=== PATIENT | female | born 1990 | race Caucasian/White ===

== ENCOUNTER 2017-09-11 11:56 | Emergency (ER) | payer SELFPAY ==
[~2017-09-11] VITALS: Ht 152.4 cm; Wt 65.4 kg
[2017-09-11 12:04] VITALS: TEMP 37; Ht 152.4 cm; Wt 65.4 kg
--- NOTE | 2017-09-11 12:59 | DIAGNOSTIC IMAGING REPORT ---
CHEST 2 VIEWS ROUTINE CLINICAL HISTORY: Cough. COMPARISON STUDY: No previous studies for comparison. FINDINGS: Lung volumes are normal. Lungs are clear. No pneumothorax or pleural effusion is noted. Pulmonary vascularity is normal. Cardiac size is normal. Mediastinal contours are normal. IMPRESSION: No acute cardiopulmonary findings. Electronically signed by: Florencio Wheeler M.D. 09/11/2017 12:58 PM Dictated Date/Time: 09/11/2017 12:57 PM
[2017-09-11] MEDS ORDERED: BENZ100C18 PO (13:25)
[2017-09-11 13:32] VITALS: BP 106/68; PULSE 68; O2SAT 100
--- NOTE | 2017-09-12 12:37 | EMERGENCY ROOM VISIT NOTE ---
ED Visit Note First contact with patient: 12:10 Chief Complaint: Sore throat and cough. History of Present Illness: Ms. Suárez is a 27-year-old female who ambulates into the ED complaining of throat pain and productive cough. Patient reports she has been having ongoing symptoms for the last week. She reports her discomfort started with a mild nonproductive cough. Since that time her cough is worsened and now is productive of yellowish sputum. Her cough worsens when she is lying down at night and improves when she is sitting upright. She does report with her cough she feels short of breath and occasionally hears herself wheezing but when the cough resolves so does the shortness of breath and wheezing. She has been using [id number] cough syrups without relief of her symptoms. She denies any associated fevers, chills , sweats, hemoptysis, palpitations, orthopnea, dependent edema, previous clots, claudication, cramping, recent surgery/inactivity/extended travel, tobacco and estrogen use, abdominal pain, nausea and vomiting. Additionally she reports 1 day after her cough started she developed a sore throat. Initially it was mild and has increased in intensity. She describes her pain as a deep achy sensation. She does not rate her discomfort. Her pain worsens with swallowing. She has not identified any alleviating factors related to the pain. She has not taken any medication for pain prior to arrival at the hospital. She denies any associated symptoms including those listed above, headache, dizziness, lightheadedness, ear pain, sinus pain, sinus drainage, voice changes, painful talking, drooling, inability to swallow, neck pain/stiffness. Review of Systems: As noted above in history of present illness. 8 body systems were reviewed and found to be negative as noted above. Past Medical History: Unspecified skin disorder, unspecified stomach disorder. Current Medications: Patient denies. Allergies to Medications: Patient denies. 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 Physical Examination: Vital Signs: Date Time Temp Pulse Resp B/P (MAP) Pulse Ox O2 Delivery O2 Flow Rate FiO2 09/11/17 13:32 68 16 106/68 100 Room Air 09/11/17 12:04 37.0 74 20 122/82 100 Room Air GENERAL: 27-year-old female in mild distress due to pain, nontoxic-appearing, afebrile and hemodynamically stable. NEUROLOGICAL: Awake, alert and oriented to person, place and time. Answering questions appropriately and following commands. Normal gait. Good hand eye coordination. SKIN: Warm, dry and pink. No soft tissue eruptions or trauma noted. HEENT: Atraumatic and normocephalic. No external ear tenderness. Auditory canals are pink and patent. Tympanic membranes are pearly leonardo with normal light reflex. No erythema or tenderness over the frontal or maxillary sinuses. PERRLA. Sclera white and conjunctiva pink. No drainage or audible congestion from naris. Oral cavity moist and pink. Airway is patent. Pharynx is nonerythematous or edematous. Tonsils were mildly erythematous but not edematous. There is no tonsillar hypertrophy or exudates. Speech normal. No lymphadenopathy. Trachea midline. No jugular venous distention. BACK: No tenderness over the bony spine. No CVA tenderness. THORAX: Lungs sounds are clear to auscultation and equal bilaterally with symmetrical chest wall. No wheezing, rales or rhonchi. ABDOMEN: Flat, soft and nontender. Positive bowel sounds in all quadrants. No guarding, rigidity or organomegaly. EXTREMITIES: Moves all extremities well on command and with purpose. All distal neurovascular statuses are intact and equal bilaterally. No calf tenderness or cords. ED Course: Patient is assessed as noted above. Patient's medication list was reviewed. Rapid Strep Screen: Negative. Culture is pending. Chest X-Rays: Were read by myself and the radiologist showing no acute infiltrates, effusions or pneumothorax. Normal heart silhouette and bony anatomy. No free air under the diaphragm. Patient was offered pain medications and refused. Patient was educated about today's findings and instructed on her treatment plan ; she verbalized understanding and agreement with this plan. Clinical Impression: Acute pharyngitis. Cough. Disposition: Patient discharged home in stable condition; prior to departure she was reassessed and subjectively reported she was feeling the same. Plan: Patient was encouraged alternate ibuprofen and acetaminophen every 3 hours as needed for persistent throat pain. Patient was encouraged to use a liquid/mechanical soft diet until resolution of throat discomfort. Patient was encouraged to stay well-hydrated with increased clear fluids. Patient was prescribed Tessalon Perles 100 mg every 8 hours as needed for cough. Patient was encouraged to follow-up with primary care provider for recheck if no better in 3-4 days. Patient was encouraged return the ED for worsening throat pain, inability to swallow, painful talking, drooling, fevers and or shortness of breath/wheezing, coughing up blood or any new/concerning symptoms.
== END 2017-09-11 13:33 | disposition home or self-care (01) ==
LOC: C.EDB 11:58 → C.EDD 13:33
DX: J02.9 Acute pharyngitis, unspecified (principal); R05 Cough